=== PATIENT | female | born 1980 | race Caucasian/White ===

== ENCOUNTER 2019-07-03 22:54 | Emergency (ER) | payer OTHER ==
[~2019-07-03] VITALS: Ht 165.1 cm; Wt 63.5 kg
[~2019-07-03 22:54] MED LIST: CEPH500C PO; DEXT5TAB27 PO; HYDR-3164 PO; NAPR-682 PO; PRED-220 PO; TRAM1TAB4 PO
[2019-07-03 23:15] VITALS: BP 143/83
[2019-07-04] MEDS ORDERED: CIPR7.5D EACH EAR (00:09)
[2019-07-04] MEDS ORDERED: CLIN300C8 PO (00:09)
[2019-07-04] MEDS ORDERED: HYDR-3164 PO (00:09)
[2019-07-04] MEDS ORDERED: CYCL10TA2 PO (00:10)
--- NOTE | 2019-07-04 00:10 | PHYS DOC ---
Past Medical History Past Medical History: Anxiety, Depression, Other Additional Past Medical Histor: insomnia, TMJ (LUIS ALFREDO TAN APRN) Past Surgical History: Appendectomy, Cholecystectomy, Tubal ligation (LUIS ALFREDO TAN APRN) Additional Information: 1 pack/day Alcohol Use: None Drug Use: None (LUIS ALFREDO TAN APRN) Attending Signature I have participated in the care of this patient and I have reviewed and agree with all pertinent clinical information above including history, exam, and recommendations. (OMKAR BOSS MD) Adult General Chief Complaint Chief Complaint: FACE PROBLEM HPI HPI Patient is a 38 year old female who presents with Right sided facial and jaw pain that she states feels like spasm in the side of her face. She states this feels exactly like the last time she had a TMJ flare up. Patient is tearful and she rates her pain a 10 out of 10. (LUIS ALFREDO TAN APRN) Review of Systems Review of Systems HENT: Denies nasal congestion or sore throat. Right ear pain. Dental caries. [] Musculoskeletal: Right facial pain. Denies back pain or joint pain [] Integument: Denies rash or skin lesions [] Neurologic: Right sided headache, denies focal weakness or sensory changes [] All other systems were reviewed and found to be within normal limits, except as documented in this note. (LUIS ALFREDO TAN APRN) Current Medications Current Medications Current Medications Medications (Trade) Dose Ordered Sig/Heidi Start Time Stop Time Status Last Admin Dose Admin Acetaminophen/ Hydrocodone Bitart (Lortab 5/325) 1 tab 1X ONCE 07/04/19 00:45 07/04/19 00:41 DC 07/04/19 00:38 1 TAB (OMKAR BOSS MD) Allergies Allergies Allergies Coded Allergies Type Severity Reaction Last Updated Verified Penicillins Allergy Severe Shortness of Air 04/03/16 Yes Sulfa (Sulfonamide Antibiotics) Allergy Intermediate Swelling 04/03/16 Yes (OMKAR BOSS MD) Physical Exam Physical Exam Constitutional: Well developed, well nourished, no acute distress, non-toxic appearance. [] HENT: Normocephalic, atraumatic, bilateral external ears normal, oropharynx moist, no oral exudates, nose normal. Right lower molar dental caries. Right otitis externa. Throat reddened and no swelling or exudates. [] Eyes: PERRLA, EOMI, conjunctiva normal, no discharge. [] Neck: Normal range of motion, no tenderness, supple, no stridor. [] Cardiovascular:Heart rate regular rhythm, no murmur [] Lungs & Thorax: Bilateral breath sounds clear to auscultation [] Skin: Warm, dry, no erythema, no rash. [] Neurologic: Alert and oriented X 3, normal motor function, normal sensory function, no focal deficits noted. [] Psychologic: Affect normal, judgement normal, mood normal. [] (LUIS ALFREDO TAN APRN) Current Patient Data Vital Signs Vital Signs Date Time Temp Pulse Resp B/P (MAP) Pulse Ox O2 Delivery O2 Flow Rate FiO2 07/04/19 00:38 Room Air 07/03/19 23:15 98.1 104 18 143/83 (103) 100 98.1 (OMKAR BOSS MD) EKG EKG [] (LUIS ALFREDO ATN APRN) Radiology/Procedures Radiology/Procedures [] (LUIS ALFREDO TAN APRN) Course & Med Decision Making Course & Med Decision Making She states she does not have popping in her jaw and she can open her mouth but is painful. Patient states she has been sick with a sinus infection. Patient states she also has pain going into her right ear. Right ear tympanic is pearly white but ear canal is reddened and tender. Patient does not have any facial pain or jaw pain with palpation. Throat is reddened but not swollen or exudates. Alert and oriented. Patient is very tearful. Skin is pink warm and dry. Afebrile. Ambulatory with steady gait. Skin is pink warm and dry. A clear to auscultation in all lobes. PERRLA. Patient does have right lower molar dental caries and broken teeth. No facial swelling. She denies any nausea or vomiting or fevers. Patient denies any nausea, vomiting or fevers. (LUIS ALFREDO TAN APRN) Dragon Disclaimer Dragon Disclaimer This electronic medical record was generated, in whole or in part, using a voice recognition dictation system. (LUIS ALFREDO TAN APRN) Departure Departure Impression: Primary Impression: Dental caries Additional Impressions: Otitis externa TMJ arthralgia Disposition: HOME, SELF-CARE Condition: STABLE Referrals: ANTONIA PARRY (PCP) Patient Instructions: Dental Caries, Otitis Externa, Temporomandibular Joint Pain-Brief Additional Instructions: FOLLOW UP WITH PRIMARY CARE PROVIDER. FOLLOW UP WITH A DENTIST. TAKE MEDICATIONS PRESCRIBED. Scripts Cyclobenzaprine Hcl (CYCLOBENZAPRINE HCL) 10 Mg Tablet 1 TAB PO TID, #30 TAB Prov: LUIS ALFREDO TAN APR07/04/19 Hydrocodone/Apap 5-325 (NORCO 5-325 TABLET) 1 Each Tablet 1 TAB PO PRN Q6HRS PRN for PAIN, #10 TAB 0 Refills Prov: LUIS ALFREDO TAN 07/04/19 Clindamycin Hcl (CLINDAMYCIN HCL) 300 Mg Capsule 300 MG PO QID for 10 Days, #40 CAP Prov: LUIS ALFREDO TAN 07/04/19 Ciprofloxacin Hcl/Dexameth (CIPRODEX OTIC SUSPENSION) 7.5 Ml Drops.susp 4 DROP EACH EAR BID, #1 BOTTLE Prov: LUIS ALFREDO TAN 07/04/19 Problem Qualifiers Additional Impressions: Otitis externa Otitis externa type: unspecified type Chronicity: acute Laterality: right Qualified Codes: H60.501 - Unspecified acute noninfective otitis externa, right ear TMJ arthralgia Laterality: right Qualified Codes: M26.621 - Arthralgia of right temporomandibular joint LUIS ALFREDO TAN APRN Jul 04, 2019 00:10 OMKAR BOSS MD Jul 04, 2019 18:19
[2019-07-04] MEDS ORDERED: HYDROcodone/APAP 5/325MG 1 TAB TABLET PO ONE (00:45)
== END 2019-07-04 00:34 | disposition home or self-care (01) ==
LOC: ER 22:54
DX: M26.621 Arthralgia of right temporomandibular joint (principal); H60.501 Unspecified acute noninfective otitis externa, right ear; K02.9 Dental caries, unspecified; F17.200 Nicotine dependence, unspecified, uncomplicated; Z88.0 Allergy status to penicillin; Z88.2 Allergy status to sulfonamides
CPT/HCPCS: 99283

== ENCOUNTER 2021-01-19 23:41 | Emergency (ER) | payer SELFPAY ==
[~2021-01-19] VITALS: Ht 165.1 cm; Wt 65.9 kg
[~2021-01-19 23:41] MED LIST changes: +CIPR7.5D EACH EAR; +CLIN300C9 PO; +CYCL10TA2 PO
[2021-01-20 00:04] VITALS: BP 158/74
[2021-01-20 00:11] LABS: BILIRUBIN,URINE NEGATIVE (NEG); CLARITY,URINE CLEAR; COLOR,URINE ORANGE; NITRITE,URINE POSITIVE (NEG); PROTEIN,URINE NEGATIVE (NEG-TRACE)
[2021-01-20 00:19] LABS: RBC,URINE TNTC /HPF (0-2)
[2021-01-20 00:20] LABS: BACTERIA,URINE FEW /HPF (0-FEW); WBC,URINE OCC /HPF (0-4)
[2021-01-20] MEDS ORDERED: HYDROcodone/APAP 5/325MG 1 TAB TABLET PO ONE (01:00)
[2021-01-20] MEDS ORDERED: NITROFURANTOIN MONOHYD/M-CRYST 100 MG CAPSULE. PO ONE (01:00)
[2021-01-20] MEDS ORDERED: NITR100C63 PO (01:19)
[2021-01-20] MEDS ORDERED: HYDR-2761 PO (01:19)
--- NOTE | 2021-01-20 01:32 | PHYS DOC ---
Past Medical History Past Medical History: Anxiety, Depression, Other Additional Past Medical Histor: insomnia, TMJ Past Surgical History: Appendectomy, Cholecystectomy, Tubal ligation Smoking Status: Current Every Day Smoker Alcohol Use: None Drug Use: None General Adult EDM: Chief Complaint: PAIN ON URINATION HPI: HPI: Patient is a 40 year old female presents with the chief complaint of urinary urgency and dysuria. Patient symptoms x 2 days. Pain is located suprapubic radiation to bilateral flanks. Prior to arrival patient took Pyridium with no relief. No associated nausea vomiting or diarrhea. Review of Systems: Review of Systems: Constitutional: Denies fever or chills. [] Eyes: Denies change in visual acuity. [] HENT: Denies nasal congestion or sore throat. [] Respiratory: Denies cough or shortness of breath. [] Cardiovascular: Denies chest pain or edema. [] GI: Denies abdominal pain, nausea, vomiting, bloody stools or diarrhea. [] : As it of dysuria positive urinary urgency Musculoskeletal: Denies back pain or joint pain. [] Integument: Denies rash. [] Neurologic: Denies headache, focal weakness or sensory changes. [] Endocrine: Denies polyuria or polydipsia. [] Lymphatic: Denies swollen glands. [] Psychiatric: Denies depression or anxiety. [] Heart Score: C/O Chest Pain: N/A Risk Factors: Risk Factors: DM, Current or recent (<one month) smoker, HTN, HLP, family history of CAD, obesity. Risk Scores: Score 0 - 3: 2.5% MACE over next 6 weeks - Discharge Home Score 4 - 6: 20.3% MACE over next 6 weeks - Admit for Clinical Observation Score 7 - 10: 72.7% MACE over next 6 weeks - Early Invasive Strategies Current Medications: Current Medications Medications (Trade) Dose Ordered Sig/Heidi Start Time Stop Time Status Last Admin Dose Admin Acetaminophen/ Hydrocodone Bitart (Lortab 5/325) 1 tab 1X ONCE 01/20/21 01:00 01/20/21 01:01 DC 01/20/21 00:50 1 TAB Nitrofurantoin Macrocrystals (Macrobid) 100 mg 1X ONCE 01/20/21 01:00 01/20/21 01:01 DC 01/20/21 00:49 100 MG Allergies: Allergies: Allergies Coded Allergies Type Severity Reaction Last Updated Verified Penicillins Allergy Severe Shortness of Air 04/03/16 Yes Sulfa (Sulfonamide Antibiotics) Allergy Intermediate Swelling 04/03/16 Yes Physical Exam: PE: General: alert, no acute distress. Skin: warm, dry and intact. Head:: Normocephalic, atraumatic. Neck: Trachea midline. Eyes: EOMI, Normal conjunctiva, No drainage CARDIOVASCULAR: Regular rate and rhythm RESPIRATORY: No respiratory distress Back: Full range of motion. MUSCULOSKELETAL: Full range of motion of bilateral upper and lower extremities. GASTROINTESTINAL: Abdomen soft without rebound or guarding. NEUROLOGICAL: Alert and noted to person, place and time. No neurological deficits observed Psychiatric: Cooperative. Normal judgment Current Patient Data: Labs: Laboratory Tests Test 01/19/21 23:53 01/20/21 00:02 POC Urine HCG, Qualitative Hcg negative (Negative) Urine Collection Type Unknown Urine Color [place] Urine Clarity Clear Urine pH 7.0 (<5.0-8.0) Urine Specific [place] 1.015 (1.000-1.030) Urine Protein Negative mg/dL (NEG-TRACE) Urine Glucose (UA) Negative mg/dL (NEG) Urine Ketones (Stick) Negative mg/dL (NEG) Urine Blood Large (NEG) Urine Nitrite Positive (NEG) Urine Bilirubin Negative (NEG) Urine Urobilinogen Dipstick 1.0 mg/dL (0.2 mg/dL) Urine Leukocyte Esterase Small (NEG) Urine RBC Tntc /HPF (0-2) Urine WBC Occ /HPF (0-4) Urine Squamous Epithelial Cells Mod /LPF Urine Bacteria Few /HPF (0-FEW) Urine Mucus Mod /LPF Vital Signs: Vital Signs Date Time Temp Pulse Resp B/P (MAP) Pulse Ox O2 Delivery O2 Flow Rate FiO2 01/20/21 00:56 75 18 98 01/20/21 00:50 Room Air 01/20/21 00:04 97.7 158/74 (102) 97.7 EKG: EKG: [] Radiology/Procedures: Radiology/Procedures: [] Course & Med Decision Making: Course & Med Decision Making Pertinent Labs and Imaging studies reviewed. (See chart for details) [] Patient was treated with Macrobid and [place]. Patient was discharged with both. Jose Antonioon Disclaimer: Chrissie Disclaimer: This electronic medical record was generated, in whole or in part, using a voice recognition dictation system. Departure Departure Impression: Primary Impression: Urinary tract infection Disposition: HOME / SELF CARE / HOMELESS Condition: STABLE Patient Instructions: Urinary Tract Infection Scripts Hydrocodone Bit/Acetaminophen (HYDROCODONE-APAP 5-325 ) 1 Tab Tablet 1 TAB PO PRN Q6HRS PRN for PAIN, #14 TAB 0 Refills Prov: LIDIA HERNÁNDEZ DO 01/20/21 Nitrofurantoin Macrocrystal (MACRODANTIN) 100 Mg Capsule 1 CAP PO BID for 10 Days, #20 CAP 0 Refills Prov: LIDIA HERNÁNDEZ DO 01/20/21 LIDIA HERNÁNDEZ DO January 20, 2021 01:32
[2021-01-20] MEDS ORDERED: diphenhydrAMINE ORAL ELIXIR 12.5 MG/5 ML ML PO ONE (02:00)
== END 2021-01-20 01:30 | disposition home or self-care (01) ==
LOC: ER 23:41
DX: N39.0 Urinary tract infection, site not specified (principal); F41.9 Anxiety disorder, unspecified; F31.9 Bipolar disorder, unspecified; F17.200 Nicotine dependence, unspecified, uncomplicated; Z90.89 Acquired absence of other organs; Z90.49 Acquired absence of other specified parts of digestive tract; Z98.51 Tubal ligation status; Z88.0 Allergy status to penicillin; Z88.2 Allergy status to sulfonamides
CPT/HCPCS: 81001; 81025; 87086; 99283